=== PATIENT | female | born 1995 | race Caucasian/White ===

== ENCOUNTER 2020-10-21 09:59 | Outpatient (REF) | payer MEDICAID, SELFPAY ==
--- NOTE | 2020-10-21 14:05 | MHC.AU.P13 ---
Adult Audiological Evaluation Date of Visit: 10/21/20 Reason for Appointment: History of childhood-onset, progressive hearing loss Previous Hearing Test Results: Moderate sloping to severe sensorineural hearing loss bilaterally Medical History: Medical History: Tremor Hearing Instrument History- Right Ear: C++ Professor: Phonak Model: Danay B50-SP Serial Number: [id number] Battery Size: 13 Warranty: 05/15/2022 Dispensed By: [facility] Date of Fittin04/01/2019 Hearing Instrument History- Left Ear: C++ Professor: Phonak Model: Danay B50-Sp Serial Number: [id number] Battery Size: 13 Warranty: 05/15/2022 Dispensed By: [facility] Date of Fittin04/01/2019 Otoscopy: Right Ear: Unremarkable Left Ear: Unremarkable Tympanometry: Right Ear: Normal Middle Ear System (Type A) Left Ear: Normal Middle Ear System (Type A) Hearing Evaluation: Transducer(s) Used: Insert Earphones, (Re-checked with) Circumaural Headphones Method: Conventional Audiometry Stimuli Used: Pure Tones Right Ear: Description of Hearing: Moderately-severe to severe sensorineural hearing loss Left Ear: Description of Hearing: Moderately-severe to severe sensorineural hearing loss Speech Recognition Threshold (SRT): Method Used: Monitored Live Voice Stimuli Used: Spondee Words Right Ear: 80 dBHL Left Ear: 80 dBHL Word Discrimination: Method: Not performed at today's visit. Comparison: Compared to the most recent evaluation: Thresholds have decreased bilaterally. Recommendations: Recommendations: Audiological re-evaluation in one year. See Hearing Aid Follow-Up note for more information. Diagnosis: Primary Diagnosis: H90.3 Bilateral Sensorineural Hearing Loss Services Performed: Services Performed: Pure Tone- Air & Bone (CPT 48327). Speech Audiometry Threshold (SRT/SAT) (CPT 07805), Tympanometry (CPT 94125) Signature: Provider: Berlin Garrido, [facility]
--- NOTE | 2020-10-21 14:06 | MHC.AU.P13 ---
Hearing Instrument Follow-Up- Binaural Date of Visit: 10/21/20 Right Ear: [place] Ranger: Model: Danay B50-SP Serial Number: [id number] Warranty: 05/15/2022 Battery Size: 13 Dispensed By: [facility] Date of Fittin04/01/2019 Left Ear: [place] Ranger: Phonak Model: Danay B50-Sp Serial Number: [id number] Warranty: 05/15/2022 Battery Size: 13 Dispensed By: [facility] Date of Fittin04/01/2019 Follow-Up Summary: Hearing aid maintenance performed. Patient reported her molds are starting to become too loose. New impressions taken bilaterally and sent to [facility]. Hearing aid programming updated with today's results. Patient was pleased with the change. Recommendations: Patient will be contacted when the new molds have arrived. Dispensed 42 batteries. Diagnosis Code(s): Primary Diagnosis: H90.3 Bilateral Sensorineural Hearing Loss Signature: Provider: Berlin Garrido, [facility]
== END 2020-10-21 10:00 | disposition home or self-care (01) ==
LOC: HO.SH 09:59
PROVIDERS: Visit Provider Family Medicine
DX: Z46.1 Encounter for fitting and adjustment of hearing aid (principal); H90.3 Sensorineural hearing loss, bilateral
CPT/HCPCS: 92553; 92555; 92567; V5266; V5275

== ENCOUNTER 2020-11-30 13:26 | Outpatient (REF) | payer MEDICAID, SELFPAY | END 2020-11-30 13:27 | disposition home or self-care (01) | LOC: HO.HAP 13:26 | PROVIDERS: Visit Provider Family Medicine | DX: Z46.1 Encounter for fitting and adjustment of hearing aid (principal); H90.3 Sensorineural hearing loss, bilateral | CPT/HCPCS: V5264 ==

== ENCOUNTER → 2021-03-12 14:37 | Outpatient (BNVA) | payer SELFPAY | PROVIDERS: PCP Family Medicine; Visit Provider Internal Medicine | DX: Z02.79 Encounter for issue of other medical certificate (principal) ==

== ENCOUNTER 2021-11-05 11:04 | Outpatient (REF) | payer MEDICAID, SELFPAY ==
--- NOTE | 2021-11-05 13:55 | MHC.AU.HFU ---
Hearing Instrument Follow-Up- Binaural Date of Visit: 11/05/21 Follow-Up Summary: Patient is in need of new molds, as her current ones have hardened. Impressions were taken bilaterally without complication and sent to [facility]. Hearing aid maintenance performed. Molds were re-tubed. Hearing aids are amplifying clearly. Dispensed 42 batteries. Recommendations: Contact patient's mother, Pema, at [phone] when new molds have arrived. Diagnosis Code(s): Primary Diagnosis: H90.3 Bilateral Sensorineural Hearing Loss Signature: Provider: Berlin Garrido, [facility]
== END 2021-11-05 11:05 | disposition home or self-care (01) ==
LOC: HO.HAP 11:04
PROVIDERS: Visit Provider Family Medicine
DX: Z46.1 Encounter for fitting and adjustment of hearing aid (principal); H90.3 Sensorineural hearing loss, bilateral
CPT/HCPCS: 92593

== ENCOUNTER 2021-12-01 15:32 | Outpatient (REF) | payer MEDICAID, SELFPAY | END 2021-12-01 15:33 | disposition home or self-care (01) | LOC: HO.HAP 15:32 | PROVIDERS: Visit Provider Family Medicine | DX: Z46.1 Encounter for fitting and adjustment of hearing aid (principal); H90.3 Sensorineural hearing loss, bilateral | CPT/HCPCS: V5264 ==

== ENCOUNTER 2022-09-14 15:18 | Outpatient (REF) | payer MEDICAID, SELFPAY ==
--- NOTE | 2022-09-14 16:33 | MHC.AU.HA3 ---
Hearing Instrument Follow-Up- Binaural Date of Visit: 09/14/22 Right Ear: Make, Model, Color, Serial Number: Avelino Jon B50-SP SN: [id number] Color: [place] Mold Technician Repair Warranty: 05/15/2022 Mold Technician Loss and Damage Warranty: 05/15/2022 Battery Size: 13 Earmold/Dome/CShell/SlimTip:Microsonic dgjhl-c-erxh shell mold Dispensed By: [facility] Date of Fittin04/01/2019 Left Ear: Obey, Model, Color, Serial Number: Avelino Jon B50-SP SN: [id number] Color: [place] Mold Technician Repair Warranty: 05/15/2022 Mold Technician Loss and Damage Warranty: 05/15/2022 Battery Size: 13 Earmold/Dome/CShell/SlimTip: [employer]ic hzrwn-a-mawb shell mold Dispensed By: [facility] Date of Fittin04/01/2019 Follow-Up Summary: Ashley dropped of both hearing aids for a tubing change as the left tubing had cracked and both tubes extremely hard. Cleaned both hearing aids and ear molds. Replaced the tubing. A listening check demonstrated that the hearing aids are in good working order. Gave Ashley a new wax loop for cleaning at her request. Recommendations: Hearing instrument maintenance in 6 months, or sooner if needed. Please contact our clinic with any questions or concerns. Diagnosis Code(s): Primary Diagnosis: H90.3 Bilateral Sensorineural Hearing Loss Signature: Provider: Stacy Pimentel, [facility]
== END 2022-09-14 15:19 | disposition home or self-care (01) ==
LOC: HO.HAP 15:18
PROVIDERS: Visit Provider Family Medicine
DX: Z46.1 Encounter for fitting and adjustment of hearing aid (principal); H90.3 Sensorineural hearing loss, bilateral
CPT/HCPCS: 92593

== ENCOUNTER 2023-03-13 12:41 | Outpatient (REF) | payer SELFPAY | END 2023-03-13 12:42 | disposition home or self-care (01) | LOC: HO.HAP 12:41 | PROVIDERS: Visit Provider Family Medicine | DX: Z13.89 Encounter for screening for other disorder (principal) ==

== ENCOUNTER 2023-03-23 14:45 | Outpatient (REF) | payer OTHER, SELFPAY | END 2023-03-23 14:46 | disposition home or self-care (01) | LOC: HO.HAP 14:45 | PROVIDERS: Visit Provider Family Medicine | DX: Z46.1 Encounter for fitting and adjustment of hearing aid (principal); H90.3 Sensorineural hearing loss, bilateral | CPT/HCPCS: V5014 ==

== ENCOUNTER 2023-09-04 07:50 | Outpatient (REF) | payer OTHER, SELFPAY ==
--- NOTE | 2023-09-04 09:16 | MHC.AU.HA3 ---
Hearing Instrument Follow-Up- Binaural Date of Visit: 09/04/23 Right Ear: Make, Model, Color, Serial Number: Avelino Jon B50-SP SN: [id number] Color: [place] Film Processing Shift Supervisor Repair Warranty: 05/15/2022 Film Processing Shift Supervisor Loss and Damage Warranty: 05/15/2022 [facility] Service Plan: Battery Size: 13 Professor Of Communication/Slim Tube: Earmold/Dome/CShell/SlimTip:[employer] jznhi-f-asdu shell mold Type of Wax Guard: Dispensed By: [facility] Date of Fittin04/01/2019 Left Ear: Obey, Model, Color, Serial Number: Avelino Jon B50-SP SN: [id number] Color: [place] Film Processing Shift Supervisor Repair Warranty: 05/15/2022 Film Processing Shift Supervisor Loss and Damage Warranty: 05/15/2022 [facility] Service Plan: Battery Size: 13 Professor Of Communication/Slim Tube: Earmold/Dome/CShell/SlimTip: [employer]ic ftolf-h-xpkx shell mold Type of Wax Guard: Dispensed By: [facility] Date of Fittin04/01/2019 Follow-Up Summary: Ashley is here for tubing changes and requests new earmolds. 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 Retubed both aids--right tonehook also needed replacing. Right earmold cracked near vent. Mics cleared of debris. Listening check ok after cleaning/retubing. Pt reports improved sound quality and comfortable fit. She has been happy with the fit of her earmolds which are from 2021 so will order new pair from [employer] on file. Recommendations: Recommendations: Patient will be contacted when materials have arrived. Diagnosis Code(s): Primary Diagnosis: H90.3 Bilateral Sensorineural Hearing Loss Signature: Provider: Berlin Stevens, [facility]
== END 2023-09-04 07:51 | disposition home or self-care (01) ==
LOC: HO.HAP 07:50
PROVIDERS: Visit Provider Family Medicine
DX: Z46.1 Encounter for fitting and adjustment of hearing aid (principal); H90.3 Sensorineural hearing loss, bilateral
CPT/HCPCS: 92593; 99499; V5266

== ENCOUNTER 2023-10-04 15:57 | Outpatient (REF) | payer OTHER, SELFPAY | END 2023-10-04 15:58 | disposition home or self-care (01) | LOC: HO.HAP 15:57 | PROVIDERS: Visit Provider Family Medicine | DX: Z46.1 Encounter for fitting and adjustment of hearing aid (principal); H90.3 Sensorineural hearing loss, bilateral | CPT/HCPCS: V5264 ==

== ENCOUNTER 2024-09-13 14:19 | Outpatient (REF) | payer OTHER, SELFPAY ==
--- NOTE | 2024-09-13 14:59 | MHC.AU.HA3 ---
Hearing Instrument Follow-Up- Binaural Date of Visit: 09/13/24 Right Ear: Make, Model, Color, Serial Number: Avelino Jon B50-SP SN: [id number] Color: [place] Delivery Truck Driver Repair Warranty: 05/15/2022 Delivery Truck Driver Loss and Damage Warranty: 05/15/2022 [facility] Service Plan: Battery Size: 13 Private Secretary/Slim Tube: Earmold/Dome/CShell/SlimTip:[employer]ic swgmw-j-julb shell mold Type of Wax Guard: Dispensed By: [facility] Date of Fittin04/01/2019 Left Ear: Make, Model, Color, Serial Number: Avelino Jon B50-SP SN: [id number] Color: [place] Delivery Truck Driver Repair Warranty: 05/15/2022 Delivery Truck Driver Loss and Damage Warranty: 05/15/2022 [facility] Service Plan: Battery Size: 13 Private Secretary/Slim Tube: Earmold/Dome/CShell/SlimTip: [employer] wpupu-h-lpce shell mold Type of Wax Guard: Dispensed By: [facility] Date of Fittin04/01/2019 Follow-Up Summary: Here for tubing change. Tubes hard with wax debris in them, left tube is cracked. Cleaned aids and ran through dehumidifier. Cleaned earmolds. Replaced tubing. Listening check positive. Improvement reported. Discussed getting a referral for updated eval as it has been almost 4 years. Recommendations: Recommendations: Hearing instrument follow-up or maintenance as needed. Diagnosis Code(s): Primary Diagnosis: H90.3 Bilateral Sensorineural Hearing Loss Signature: Provider: Stacy Blank, [facility]
== END 2024-09-13 14:20 | disposition home or self-care (01) ==
LOC: HO.HAP 14:19
PROVIDERS: Visit Provider Family Medicine
DX: Z46.1 Encounter for fitting and adjustment of hearing aid (principal); H90.3 Sensorineural hearing loss, bilateral
CPT/HCPCS: 92593; 99499

== ENCOUNTER 2025-06-18 15:45 | Outpatient (REF) | payer SELFPAY | END 2025-06-18 15:46 | disposition home or self-care (01) | LOC: HO.HAP 15:45 | PROVIDERS: Visit Provider Family Medicine | DX: Z46.1 Encounter for fitting and adjustment of hearing aid (principal); H90.3 Sensorineural hearing loss, bilateral | CPT/HCPCS: V5267 ==

== ENCOUNTER 2025-09-23 12:03 | Outpatient (REF) | payer OTHER, SELFPAY ==
--- NOTE | 2025-09-23 13:55 | MHC.AU.HA3 ---
Hearing Instrument Follow-Up- Binaural Date of Visit: 09/23/25 Right Ear: Make, Model, Color, Serial Number: Avelino Jon B50-SP SN: [id number] Color: [place] Senior Advocate Repair Warranty: 05/15/2022 Senior Advocate Loss and Damage Warranty: 05/15/2022 Battery Size: 13 Earmold/Dome/CShell/SlimTip:[employer]ic lpnxn-u-ptni shell mold Dispensed By: [facility] Date of Fittin04/01/2019 Left Ear: Obey, Model, Color, Serial Number: Avelino Jon B50-SP SN: [id number] Color: [place] Senior Advocate Repair Warranty: 05/15/2022 Senior Advocate Loss and Damage Warranty: 05/15/2022 Battery Size: 13 Earmold/Dome/CShell/SlimTip: [employer]ic huabz-m-egaj shell mold Dispensed By: [facility] Date of Fittin04/01/2019 Follow-Up Summary: Tubing hard, discolored, full of wax. Left tone hook spinning. Cleaned HAs (2). Cleaned EMs (2). Replaced tubing (2). 18433 x6. Replaced left tone hook. Brushed/vacuumed microphones. Ran through dehumidifier. Listening check demonstrated HAs amplifying clearly. Needs new EMs, current pair too loose and hardened. Impressions taken, bilaterally, without incident. Sent to Liz. Ashley agreeable to softer silicone material to prevent shrinkage and hardness which occurs with current grlsr-b-wqda. Also discussed new HAs - Ashley will request order from PCP for updated test. Recommendations: Patient will be contacted when materials have arrived. Diagnosis Code(s): Primary Diagnosis: H90.3 Bilateral Sensorineural Hearing Loss Signature: Provider: Stacy Pimentel, [facility]
== END 2025-09-23 12:04 | disposition home or self-care (01) ==
LOC: HO.HAP 12:03
PROVIDERS: Visit Provider Family Medicine
DX: Z46.1 Encounter for fitting and adjustment of hearing aid (principal); H90.3 Sensorineural hearing loss, bilateral
CPT/HCPCS: 92593; 99499